=== PATIENT | female | born 1970 | race Caucasian/White ===

== ENCOUNTER 2023-03-12 20:17 | Inpatient (IN) | payer MEDICAID, OTHER ==
[~2023-03-12] VITALS: Ht 160 cm; Wt 71.7 kg
[2023-03-12 20:31] VITALS: BP 126/86; PULSE 90; RESP 17; TEMP 97.5; O2SAT 100
[2023-03-12] MEDS ORDERED: NACL 0.9% 1,000 ML IV SCH ×2 (20:55→22:45)
[2023-03-12] MEDS ORDERED: KETOROLAC 15 MG/ML VIAL IVP ONE (20:55)
[2023-03-12 21:20] LABS: APPEARANCE,URINE CLEAR (CLEAR); BILIRUBIN,URINE NEGATIVE (NEGATIVE); BLOOD, URINE 1+ (NEGATIVE); COLOR,URINE YELLOW (YELLOW); LEUKOCYTE ESTERASE ,URINE 1+ (NEGATIVE); NITRITE, URINE POSITIVE (NEGATIVE); PROTEIN,URINE 3+ (NEGATIVE); UGLUCOSE NEGATIVE (NEGATIVE); UROBILINOGEN,URINE 0.2 EU/dL (0.2 - 1)
[2023-03-12 21:31] LABS: BACTERIA,URINE 10-30 (MOD) /HPF (None Seen); RBC,URINE 11-20 (MOD) /HPF (0-5); SQUAMOUS EPITHELIAL CELL,UR 4-10 (MOD) /LPF (0-3 (FEW))
[2023-03-12 21:55] LABS: BASOPHILS # (AUTO) 0.1 K/uL (0.00-0.22); BASOPHILS % (AUTO) 0.5 % (0.0-2.0); EOSINOPHILS # (AUTO) 0.2 K/uL (0-0.4); EOSINOPHILS % (AUTO) 1.1 % (0.0-4.0); HEMATOCRIT 36.1 % (36-48); HEMOGLOBIN 11.8 g/dL (12.0-16.0); LYMPHOCYTES # (AUTO) 1.2 K/uL (2.5-16.5); LYMPHOCYTES % (AUTO) 7.2 % (20.5-51.1); MEAN CORPUSCULAR HEMOGLOBIN 30 pg (27-31); MEAN CORPUSCULAR HGB CONC 33 g/dL (33-37); MEAN CORPUSCULAR VOLUME 90.7 fL (80-94); MONOCYTES # (AUTO) 1.2 K/uL (0.8-1.0); MONOCYTES % (AUTO) 7.1 % (1.7-9.3); NEUTROPHILS % (AUTO) 84.1 % (42.2-75.2); PLATELET COUNT (AUTO) 442 K/uL (140-450); RED BLOOD CELL COUNT(AUTO) 3.98 MIL/uL (4.20-5.40); WHITE BLOOD COUNT (AUTO) 16.6 K/uL (4.8-10.8)
[2023-03-12 22:07] LABS: ALBUMIN 3.1 g/dL (3.4-5.0); ANION GAP 15.9 (8-16); CALCIUM 8.4 mg/dL (8.5-10.1); CREATININE 1.2 mg/dL (0.6-1.3); POTASSIUM 3.9 mmol/L (3.5-5.1); TOTAL BILIRUBIN 0.4 mg/dL (0.0-1.0); TOTAL PROTEIN, SERUM 7.9 g/dL (6.4-8.2)
[2023-03-12 23:07] LABS: LACTIC ACID 2.4 mmol/L (0.4-2.0)
[2023-03-12] MEDS ORDERED: cefTRIAXone 2,000 MG in DEXTROSE 5% 100 ML IV ONE (23:30)
[2023-03-12] MEDS ORDERED: cefTRIAXone 2,000 MG VIAL ONE (23:31)
[2023-03-13] VITALS (7 sets, daily range): BP systolic 106; BP diastolic 70; PULSE 64–88; RESP 15–18; TEMP 97; O2SAT 98–100
[2023-03-13] MEDS ORDERED: ONDANSETRON 4 MG/2 ML VIAL IVP ONE (00:45)
[2023-03-13] MEDS ORDERED: MORPHINE SULFATE 4 MG/ML SYR IVP ONE ×2 (00:45→06:45)
[2023-03-13] MEDS ORDERED: ZOLPIDEM 5 MG TAB PO PRN (05:10)
[2023-03-13] MEDS ORDERED: ONDANSETRON 4 MG/2 ML VIAL IM/IVP PRN (05:10)
[2023-03-13] MEDS ORDERED: ACETAMINOPHEN 325 MG TAB PO PRN (05:10)
[2023-03-13] MEDS ORDERED: HYDROcodone/APAP 7.5/325 MG 1 TAB PO PRN (05:10)
[2023-03-13] MEDS ORDERED: DOCUSATE SODIUM 100 MG GELCAP PO PRN (05:10)
[2023-03-13] MEDS ORDERED: POTASSIUM CHLORIDE 10 MEQ TABER PO PRN (05:10)
[2023-03-13] MEDS ORDERED: guaiFENesin DM 200/20 MG-10 ML 10 ML UDC PO PRN (05:10)
[2023-03-13] MEDS: NACL 0.9% 1,000 ML IV SCH ×2 (05:37→17:17)
[2023-03-13 06:26] LABS: BASOPHILS % (AUTO) 0.4 % (0.0-2.0); EOSINOPHILS # (AUTO) 0.2 K/uL (0-0.4); EOSINOPHILS % (AUTO) 1.5 % (0.0-4.0); HEMATOCRIT 31.2 % (36-48); HEMOGLOBIN 10.2 g/dL (12.0-16.0); LYMPHOCYTES # (AUTO) 1.2 K/uL (2.5-16.5); LYMPHOCYTES % (AUTO) 10.1 % (20.5-51.1); MEAN CORPUSCULAR HEMOGLOBIN 30 pg (27-31); MEAN CORPUSCULAR HGB CONC 33 g/dL (33-37); MEAN CORPUSCULAR VOLUME 90.5 fL (80-94); MONOCYTES % (AUTO) 8.3 % (1.7-9.3); NEUTROPHILS # (AUTO) 9.4 K/uL (1.8-7.7); NEUTROPHILS % (AUTO) 79.7 % (42.2-75.2); PLATELET COUNT (AUTO) 376 K/uL (140-450); RED BLOOD CELL COUNT(AUTO) 3.45 MIL/uL (4.20-5.40); RED CELL DISTRIBUTION WIDTH 13.8 % (11.6-13.7); WHITE BLOOD COUNT (AUTO) 11.8 K/uL (4.8-10.8)
[2023-03-13 06:43] LABS: ALBUMIN 2.4 g/dL (3.4-5.0); ANION GAP 13.1 (8-16); CALCIUM 7.5 mg/dL (8.5-10.1); CARBON DIOXIDE 24.1 mmol/L (21-32); POTASSIUM 4.2 mmol/L (3.5-5.1); TOTAL BILIRUBIN 0.5 mg/dL (0.0-1.0); TOTAL PROTEIN, SERUM 6.5 g/dL (6.4-8.2)
[2023-03-13] MEDS ORDERED: ALBUTEROL SULFATE/IPRATROPIU 3 ML SOL IH PRN (07:20)
[2023-03-13] MEDS: TAMSULOSIN 0.4 MG CAP PO SCH (07:51)
[2023-03-13] MEDS ORDERED: PANTOPRAZOLE 40 MG TABEC PO ONE (07:52)
[2023-03-13] MEDS: PANTOPRAZOLE 40 MG TABEC PO SCH (08:01)
[2023-03-13] MEDS ORDERED: PANTOPRAZOLE 40 MG TABEC PO SCH (09:00)
[2023-03-13] MEDS ORDERED: PIPERACILLIN/TAZOBACTAM 3.375 GM in DEXTROSE 5% 50 ML IV SCH (13:00)
[2023-03-13] MEDS: MORPHINE SULFATE 2 MG/ML SYR IVP PRN (16:11)
[2023-03-13] MEDS ORDERED: cefTRIAXone 2,000 MG in DEXTROSE 5% 100 ML IV SCH (21:00)
[2023-03-13] MEDS ORDERED: cefTRIAXone 2,000 MG VIAL ONE (21:04)
[2023-03-14] VITALS: BP 97/58; PULSE 68; PULSE 77; RESP 18; TEMP 98; O2SAT 100
[2023-03-14] MEDS: MORPHINE SULFATE 2 MG/ML SYR IVP PRN (00:15)
[2023-03-14] MEDS: NACL 0.9% 1,000 ML IV SCH ×2 (02:04→06:07)
[2023-03-14 04:00] VITALS: BP 91/52; PULSE 68; PULSE 70; RESP 18; TEMP 98.7; O2SAT 100
[2023-03-14 06:10] LABS: BASOPHILS # (AUTO) 0.1 K/uL (0.00-0.22); BASOPHILS % (AUTO) 0.7 % (0.0-2.0); EOSINOPHILS # (AUTO) 0.3 K/uL (0-0.4); EOSINOPHILS % (AUTO) 4.1 % (0.0-4.0); HEMATOCRIT 31.3 % (36-48); HEMOGLOBIN 10.5 g/dL (12.0-16.0); LYMPHOCYTES # (AUTO) 2.1 K/uL (2.5-16.5); LYMPHOCYTES % (AUTO) 27.3 % (20.5-51.1); MEAN CORPUSCULAR HEMOGLOBIN 30 pg (27-31); MEAN CORPUSCULAR HGB CONC 34 g/dL (33-37); MONOCYTES # (AUTO) 0.6 K/uL (0.8-1.0); NEUTROPHILS # (AUTO) 4.7 K/uL (1.8-7.7); NEUTROPHILS % (AUTO) 59.9 % (42.2-75.2); PLATELET COUNT (AUTO) 355 K/uL (140-450); RED BLOOD CELL COUNT(AUTO) 3.48 MIL/uL (4.20-5.40); RED CELL DISTRIBUTION WIDTH 13.9 % (11.6-13.7); WHITE BLOOD COUNT (AUTO) 7.8 K/uL (4.8-10.8)
[2023-03-14 06:35] LABS: ALBUMIN 2.3 g/dL (3.4-5.0); ANION GAP 12.2 (8-16); CALCIUM 7.7 mg/dL (8.5-10.1); CARBON DIOXIDE 24.4 mmol/L (21-32); POTASSIUM 3.6 mmol/L (3.5-5.1); TOTAL BILIRUBIN 0.3 mg/dL (0.0-1.0); TOTAL PROTEIN, SERUM 6.5 g/dL (6.4-8.2)
[2023-03-14 07:25] VITALS: O2SAT 96
[2023-03-14 08:00] VITALS: BP 96/68; PULSE 75; PULSE 82; RESP 16; TEMP 97.5; O2SAT 98
[2023-03-14] MEDS: PANTOPRAZOLE 40 MG TABEC PO SCH (08:08)
[2023-03-14] MEDS: TAMSULOSIN 0.4 MG CAP PO SCH (08:08)
[2023-03-14] MEDS ORDERED: PANT40EC56 PO (11:42)
[2023-03-14] MEDS ORDERED: SULF-59 PO (11:42)
[2023-03-14] MEDS ORDERED: DOCU-299 PO (11:42)
[2023-03-14] MEDS ORDERED: TAMS0.4C96 PO (11:42)
[2023-03-14 12:00] VITALS: BP 110/77; PULSE 58; PULSE 62; RESP 16; TEMP 97.3; O2SAT 100
[2023-03-14 12:11] VITALS: BP 96/68; PULSE 75; RESP 16; TEMP 97.5
== END 2023-03-14 13:57 | disposition home or self-care (01) | DRG 720 ==
LOC: MED 20:17 → MTU 03-13 05:12
PROVIDERS: ADMIT Student in an Organized Health Care Education/Training Program; ATTEND Student in an Organized Health Care Education/Training Program
DX: A41.9 Sepsis, unspecified organism (principal); E87.20 Acidosis, unspecified; E44.1 Mild protein-calorie malnutrition; D63.8 Anemia in other chronic diseases classified elsewhere; E86.0 Dehydration; K21.9 Gastro-esophageal reflux disease without esophagitis; R65.20 Severe sepsis without septic shock; N18.9 Chronic kidney disease, unspecified; N13.6 Pyonephrosis; N83.201 Unspecified ovarian cyst, right side; J45.909 Unspecified asthma, uncomplicated; Z88.1 Allergy status to other antibiotic agents; Z97.5 Presence of (intrauterine) contraceptive device; Z68.28 Body mass index [BMI] 28.0-28.9, adult
CPT/HCPCS: 36415; 71045; 76856; 80053; 81001; 83605; 83690; 85025; 87040; 87081; 87086; 96361; 96365; 96375; 96376; 99291; J0696; J1885; J2270; J2405; J7060; Q0092